=== PATIENT | female | born 1970 | race Caucasian/White ===

== ENCOUNTER 2023-06-01 20:20 | Emergency (ER) | payer BC, SELFPAY ==
--- NOTE | 2023-06-01 20:28 | CRLHL7_ITS ---
For Patients: As a result of the Century Cures Act, medical imaging exams and procedure reports are released immediately into your electronic medical record. You may view this report before your referring provider. If you have questions, please contact your health care provider. INDICATION: Trauma. Pain and swelling. TECHNIQUE: Left ankle 3 views. COMPARISON: None. FINDINGS: No acute fracture. Talar dome is intact. Ankle mortise is congruent. Joint spaces are maintained. Mild soft tissue swelling. IMPRESSION: No acute osseous abnormality. Dictated by Brock Cordova MD @ 06/01/2023 9:23:27 PM (Electronically Signed)
[2023-06-01 20:29] VITALS: BP 151/99; PULSE 90; RESP 18; TEMP 36.8; BMI 28.0
--- NOTE | 2023-06-01 20:39 | ED_ITS ---
HPI - General Adult General Chief complaint: Extremity Pain/Injury, Lower Stated complaint: left ankle injury Time Seen by Provider: 06/01/23 20:39 History of Present Illness HPI narrative: CC: Left Ankle Pain, Swelling pt. was walking off curb when she rolled left ankle. able to bear weight on foot. cms intact. 53-year-old woman presenting to the emergency department after injuring her left ankle about 10 hours ago this morning. She had stepped off a curb rolling that ankle. No head injury. No loss of consciousness. No hip or back pain. She did however scrape her left knee as well. Nauseated with the degree of pain. Related Data Home Medications Medication Instructions Recorded Confirmed albuterol sulfate 90 mcg/actuation 1 - 2 puff inhalation Q4H PRN 06/01/23 06/01/23 aerosol inhaler wheezing hydrochlorothiazide 25 mg tablet 25 mg PO DAILY 06/01/23 06/01/23 levothyroxine 88 mcg tablet 88 mcg PO QAM 06/01/23 06/01/23 sertraline 50 mg tablet 50 mg PO QAM 06/01/23 06/01/23 Allergies Allergy/AdvReac Type Severity Reaction Status Date / Time No Known Drug Allergies Allergy Verified 06/01/23 20:31 Review of Systems Status of ROS: Reports: 6 or more systems reviewed and unremarkable except as noted in History and below [facility] Social History Smoking Status: Never smoker Second hand tobacco smoke exposure: No How often do you have a drink containing alcohol: never How often do you have six or more drinks on one occasion: Never AUDIT-C Alcohol total score: 0 Non-prescribed substance use: denies use Exam Narrative: Exam Narrative: Pleasant. Very uncomfortable in apparent pain. Head is atraumatic. Favoring the left leg. Light abrasion to the left knee but flexes and extends without significant difficulty here. Do not appreciate an effusion. No pain to palpation other than what in the area abrasion. Left ankle with bimalleolar tenderness inferiorly more so medial. No navicular or base of 5th metatarsal tenderness. No instability to varus or valgus stressors of the ankle or drawer testing. Mild swelling about the ankle. Const: Vital Signs, click to edit/add: Vital Signs - 24 hr 06/01/23 20:29 Temperature 98.2 F Pulse Rate [Right Pulse Oximeter] 90 Respiratory Rate 18 Blood Pressure [Le ft Upper Arm] 151/99 H Oxygen Delivery Me thod Room Air Documenting provider has reviewed patient's vital signs: yes Course Vital Signs Vital signs: Initial Vital Signs Temperature 98.2 F 06/01/23 20:29 Temperature Source Temporal Artery Scan 06/01/23 20:29 Pulse Rate 90 06/01/23 20:29 Respiratory Rate 18 06/01/23 20:29 Blood Pressure 151/99 H 06/01/23 20:29 Blood Pressure Mean 116 H 06/01/23 20:29 Blood Pressure Position Sitting 06/01/23 20:29 Oxygen Delivery Method Room Air 06/01/23 20:29 Vital Signs Temperature 98.2 F 06/01/23 20:29 Pulse Rate 90 06/01/23 20:29 Respiratory Rate 18 06/01/23 20:29 Blood Pressure 151/99 H 06/01/23 20:29 Oxygen Delivery Method Room Air 06/01/23 20:29 Temperature 98.0 F 06/01/23 22:11 Pulse Rate 85 06/01/23 22:11 Respiratory Rate 18 06/01/23 22:11 Blood Pressure 132/74 06/01/23 22:11 Pulse Oximetry 98 06/01/23 22:09 Oxygen Delivery Method Room Air 06/01/23 22:08 Medical Decision Making MDM Narrative Medical decision making narrative: Due to discomfort given Zofran and Percocet here in the emergency department. Ice. Cannot clear with [place] ankle rules. Sent to x-ray By my read x-rays of the ankle look to be without acute bony abnormality. Mortise is maintained. Applied Petar wrap. Supplied with crutches. Given a gel cast as well. See patient discharge plan Medical Records Medical records reviewed: Yes I reviewed the patient's medical records Discharge Plan Discharge Clinical Impression: Ankle sprain, Abrasion of knee, left Patient Disposition: Home w/ Parent or Adult Condition: Improved Additional Instructions: Elevate for comfort. I would ice as discussed 2-3 times daily over the next few days. Compression with the Petar wrap including overnight as tolerable. Can take up to 800 mg of ibuprofen per dose or up to 1000 mg of acetaminophen per dose. Alternative to the ibuprofen might be up to 500 mg of naproxen 2 times daily. See handout on rehabilitation for ankle sprain. It may not all apply but the stretching and strengthening and balance training certainly would. Use crutches to rest your ankle over the next few days. Can use the supplied gel cast to begin early mobilization but I would not really try to walk much with this until a few days from now. Prescriptions: No Action levothyroxine 88 mcg tablet 88 mcg PO QAM hydrochlorothiazide 25 mg tablet 25 mg PO DAILY albuterol sulfate 90 mcg/actuation HFA aerosol inhaler 1 - 2 puff INHALATION Q4H PRN (Reason: wheezing) sertraline 50 mg tablet 50 mg PO QAM Follow Up/Referrals: Denita Adler DO [Primary Care Provider] - Stand Alone Forms: [employer] Info Instructions
[2023-06-01] MEDS: ONDANSETRON ODT 4 MG TAB PO (20:46)
[2023-06-01] MEDS: OxyCODONE/APAP 5-325 TABLET 2 TAB PO (21:10)
[2023-06-01 22:08] VITALS: BP 132/74; PULSE 85; RESP 18; TEMP 36.7
[2023-06-01 22:09] VITALS: O2SAT 98
[2023-06-01 22:11] VITALS: BP 132/74; PULSE 85; RESP 18; TEMP 36.7
== END 2023-06-01 22:11 | disposition home or self-care (01) ==
PROVIDERS: Emergency Provider Family Medicine; PCP Family Medicine
DX: S93.402A Sprain of unspecified ligament of left ankle, initial encounter (principal); S80.212A Abrasion, left knee, initial encounter
CPT/HCPCS: 73610; 94761; 99283; 99284; A9270